=== PATIENT | female | born 2000 | race Caucasian/White ===

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

== ENCOUNTER 2019-03-29 07:39 | Emergency (ER) | payer OTHER ==
[~2019-03-29] VITALS: Ht 160 cm; Wt 59.0 kg
[2019-03-29 07:47] VITALS: BP 114/68
== END 2019-03-29 08:28 ==
LOC: ER 07:40
DX: O99.519 Diseases of the respiratory system complicating pregnancy, unspecified trimester (principal); J18.9 Pneumonia, unspecified organism; Z3A.00 Weeks of gestation of pregnancy not specified